=== PATIENT | male | born 1980 | race Two or more races ===

== ENCOUNTER 2020-07-04 16:07 | Emergency (ER) | payer OTHER ==
[~2020-07-04] VITALS: Ht 172.7 cm; Wt 117.9 kg
[2020-07-04] MEDS ORDERED: LIDOCAINE /MPF 1% VIAL 5 ML VIAL ONE (16:42)
[2020-07-04] MEDS ORDERED: BACI/NEOM/POLY B OINT PKT 1 UDPKT PACKET TP ONE (17:00)
[2020-07-04] MEDS ORDERED: TDAP [DIPH/PERTUSSIS/TET] 0.5 ML VIAL IM ONE ×2 (17:00→17:06)
[2020-07-04] MEDS ORDERED: LIDOCAINE HCL/PF 1% 30 ML VIAL TP ONE (17:00)
--- NOTE | 2020-07-04 17:05 | NUR ---
Patient came in to the er c/o lac on the left leg. On room air, breathing evenly and unlabored. connected to the monitor and pulse ox. kept comfortable, will continue to monitor accordingly.
[2020-07-04 17:25] VITALS: BP 135/80
--- NOTE | 2020-07-04 17:26 | NUR ---
Patient discharged to home in stable condition. Written and verbal after care instructions given. Patient verbalizes understanding of instruction.
== END 2020-07-04 17:26 | disposition home or self-care (01) ==
LOC: ER 16:07
DX: S81.812A Laceration without foreign body, left lower leg, initial encounter (principal); W22.8XXA Striking against or struck by other objects, initial encounter; Y93.89 Activity, other specified; Y92.89 Other specified places as the place of occurrence of the external cause; Y99.0 Civilian activity done for income or pay
CPT/HCPCS: 12001; 90471; 90715; 99283; J3490 ×2